=== PATIENT | male | born 1940 | race Caucasian/White ===

== ENCOUNTER 2020-04-15 12:59 | Day surgery (SDC) | payer MEDICARE, BC ==
[~2020-04-15] VITALS: Ht 185.4 cm; Wt 91.8 kg
[2020-04-15 14:31] VITALS: BP 114/65; PULSE 65; TEMP 98.7
[2020-04-15] MEDS ORDERED: PRINIVIL10 MG PO (14:36)
[2020-04-15] MEDS ORDERED: GLUCOPHAGE500 MG/TAB PO (14:36)
[2020-04-15] MEDS ORDERED: ACTOS 15MG TAB15 MG PO (14:37)
[2020-04-15] MEDS ORDERED: LIPITOR 40MG TA40 MG PO (14:37)
[2020-04-15] MEDS ORDERED: TRICOR145 MG PO (14:38)
[2020-04-15] MEDS ORDERED: LUTEIN20 M1 PO (14:39)
[2020-04-15] MEDS ORDERED: SYNTHROID0.075 MG/T PO (14:39)
[2020-04-15] MEDS ORDERED: B-121000 MCG PO (14:40)
[2020-04-15] MEDS ORDERED: VITAMIN D31000 I1 PO (14:41)
[2020-04-15 16:50] VITALS: BP 139/72; PULSE 65; TEMP 98.3
--- NOTE | 2020-04-15 16:50 | NUR ---
PATIENT TRANSPORTED PER CART TO [facility] ACCOMPANIED BY HOOKER MACHINE TENDER. PATIENT ALERT AND TALKING WITH STAFF. DENIES DISCOMFORT AND NAUSEA. MONITORS APPLIED.VSS ON ROOM AIR. PATIENT REQUESTS TO USE RESTROOM. PATIENT AMBULATED WITH 2 ASSIST TO THE RESTROOM. STEADY GAIT. VOIDS WITHOUT PROBLEMS. AND AMBULATED BACK TO CART.
[2020-04-15 17:00] VITALS: BP 152/66; PULSE 58
--- NOTE | 2020-04-15 17:05 | NUR ---
VSS ON ROOM AIR. PATIENT ALERT AND TALKING WITH . PATIENT DENIES DISCOMFORT AND NAUSEA. PATIENT DRINKS DIET PEPSI AND EATS MUFFIN WITHOUT PROBLEMS.
[2020-04-15 17:15] VITALS: BP 158/66; PULSE 58
--- NOTE | 2020-04-15 17:20 | NUR ---
VSS ON ROOM AIR. PATIENT DENIES DISCOMFORT AND NAUSEA. TALKING WITH . PATIENT STATES FEELS LIKE HE IS ALERT MORE.
[2020-04-15 17:30] VITALS: BP 150/78; PULSE 65
--- NOTE | 2020-04-15 17:30 | NUR ---
VSS. PATIENT DOING WELL. IV SITE DC'D WITH CATHETER TIP INTACT. PRESSURE AND BANDAGE APPLIED. AT BEDSIDE.
[2020-04-15 17:40] VITALS: BP 151/62; PULSE 61
--- NOTE | 2020-04-15 17:44 | NUR ---
VSS ON ROOM AIR. DISCHARGE INSTRUCTIONS GIVEN VERBAL AND DISCHARGE PACKET DISCUSSED. QUESTIONS ANSWERED AND PATIENT AND VOICED UNDERSTANDING. DISCHARGE PACKET GIVEN TO . PATIENT CHANGES INTO STREET CLOTHES. PATIENT DISCHARGED PER WHEEL CHAIR [facility] BY AMB RN [facility].
== END 2020-04-15 17:45 | disposition home or self-care (01) ==
LOC: SDCO 12:59
DX: N20.2 Calculus of kidney with calculus of ureter (principal); T83.122A Displacement of indwelling ureteral stent, initial encounter; Y73.3 Surgical instruments, materials and gastroenterology and urology devices (including sutures) associated with adverse incidents; M06.9 Rheumatoid arthritis, unspecified; E78.5 Hyperlipidemia, unspecified; E11.51 Type 2 diabetes mellitus with diabetic peripheral angiopathy without gangrene; E03.9 Hypothyroidism, unspecified; I10 Essential (primary) hypertension; Z79.84 Long term (current) use of oral hypoglycemic drugs; Z79.82 Long term (current) use of aspirin; Z79.899 Other long term (current) drug therapy; Z87.891 Personal history of nicotine dependence
CPT/HCPCS: C1769; J0690; J1100; J2405; J2704; J3010; J7030

== ENCOUNTER 2020-05-27 10:25 | Emergency (ER) | payer MEDICARE, BC ==
[~2020-05-27] VITALS: Ht 185.4 cm; Wt 90.9 kg
[~2020-05-27 10:25] MED LIST: ACTOS 15MG TAB15 MG PO; B-121000 MCG PO; GLUCOPHAGE500 MG/TAB PO; LIPITOR 40MG TA40 MG PO; LUTEIN20 M1 PO; PRINIVIL10 MG PO; SYNTHROID0.075 MG/T PO; TRICOR145 MG PO; VITAMIN D31000 I1 PO
[2020-05-27 10:36] VITALS: TEMP 98.3
[2020-05-27 11:10] LABS: COLLECTION METHOD CLEAN CATCH
[2020-05-27 11:14] LABS: BASO # 0.1 (0.0-0.2); BASO % 0.8 % (0.0-2.0); EOS # 0.4 (0.0-0.7); EOS % 5.7 % (0-4.0); GRAN # 4.1 (1.4-6.5); GRAN % 62.5 % (42.2-75.2); HEMATOCRIT 45.3 % (42.0-52.0); HEMOGLOBIN 14.5 g/dl (13.5-18.0); LYMPH # 1.2 (1.2-3.4); LYMPH % 18.5 % (20.0-51.0); MEAN CELL VOLUME 95 fl (80.0-100.0); MEAN CORPUSCULAR HEMOGLOBIN 30 pg (27.0-31.0); MEAN CORPUSCULAR HGB CONC 32 g/dl (33.0-37.0); MEAN PLATELET VOLUME 10.8 fl (7.4-10.4); MONO # 0.8 (0.1-0.6); MONO % 12.2 % (1.7-9.3); PLATELET COUNT 197 K/mm3 (130-400); RED BLOOD COUNT 4.77 M/mm3 (4.20-5.60); REDCELL DISTRIBUTION WIDTH-CV 12.5 % (11.5-14.5)
[2020-05-27 11:25] LABS: ALBUMIN 4.6 gm/dL (3.5-5.0); BILIRUBIN,TOTAL 0.4 mg/dL (0.0-1.0); CALCIUM 10.1 mg/dL (8.4-10.2); CREATININE, serum 1.41 (0.66-1.25); POTASSIUM 4.3 mmol/L (3.4-5.0); TOTAL PROTEIN 8.4 gm/dL (6.4-8.2)
[2020-05-27 11:35] LABS: PROTHROMBIN TIME 11.2 SECONDS (9.7-12.8)
[2020-05-27 12:29] LABS: PH 6 (5-8); SQUAMOUS EPITHELIAL None Seen /hpf; URINE APPEARANCE Cloudy; URINE BACTERIA None Seen /hpf; URINE BILIRUBIN Negative (NEGATIVE); URINE BLOOD 3+ (NEGATIVE); URINE COLOR Yellow; URINE GLUCOSE 2+ (NEGATIVE); URINE KETONE Negative (NEGATIVE); URINE LEUKOCYTE ESTERASE Negative (NEGATIVE); URINE NITRATE Negative (NEGATIVE); URINE PROTEIN(semi-quant) 1+ (NEGATIVE); URINE RBC >50 /hpf; URINE UROBILINOGEN Negative (NEGATIVE)
[2020-05-27 13:05] VITALS: BP 137/66; PULSE 63
== END 2020-05-27 13:05 | disposition home or self-care (01) ==
LOC: COL.ER 10:25
PROVIDERS: Emergency Medicine
DX: R31.0 Gross hematuria (principal); Z87.442 Personal history of urinary calculi; Z87.891 Personal history of nicotine dependence; Z79.84 Long term (current) use of oral hypoglycemic drugs; Z79.82 Long term (current) use of aspirin

== ENCOUNTER 2021-11-29 15:15 | Inpatient (IN) | payer MEDICARE, BC ==
[~2021-11-29] VITALS: Ht 185.4 cm; Wt 93.8 kg
[2021-12-06 13:06] LABS: HEMATOCRIT 41.4 % (42.0-52.0); HEMOGLOBIN 13.7 g/dl (13.5-18.0); MEAN CELL VOLUME 92 fl (80.0-100.0); MEAN CORPUSCULAR HEMOGLOBIN 31 pg (27-31); MEAN CORPUSCULAR HGB CONC 33 g/dl (33.0-37.0); MEAN PLATELET VOLUME 11.1 fl (7.4-10.4); PLATELET COUNT 203 K/mm3 (130-400); RED BLOOD COUNT 4.49 M/mm3 (4.20-5.60); REDCELL DISTRIBUTION WIDTH-CV 13.3 % (11.5-14.5)
[2021-12-06 13:17] LABS: PROTHROMBIN TIME 11.3 SECONDS (9.7-12.8)
[2021-12-06 13:19] LABS: PARTIAL THROMBOPLASTIN TIME 22.1 SECONDS (26.0-37.0)
[2021-12-06 13:25] LABS: ALBUMIN 4.3 gm/dL (3.4-4.8); BILIRUBIN,TOTAL 0.6 mg/dL (0.2-1.2); CALCIUM 10.3 mg/dL (8.4-10.2); CREATININE, serum 1.81 mg/dL (0.72-1.25); POTASSIUM 4.7 mmol/L (3.5-4.5); TOTAL PROTEIN 7.7 gm/dL (6.2-8.1)
[2021-12-07] VITALS (560 sets, daily range): BP systolic 82–137; BP diastolic 57–107; PULSE 63–84; TEMP 97.3–98.5; O2SAT 84–100
[2021-12-07] MEDS ORDERED: OMEGA-3 FISH1000 MG PO (06:02)
[2021-12-07] MEDS ORDERED: EUTHYROX75 MCG PO (06:03)
[2021-12-07] MEDS ORDERED: LANTUS SOLOS100 U/ML SQ (06:06)
[2021-12-07] MEDS ORDERED: COLACE 100100 MG/CAP PO (07:34)
[2021-12-07] MEDS ORDERED: NORCO 325 MG-51 TAB PO (07:35)
[2021-12-07] MEDS ORDERED: ASPIRIN 81M81 MG/TA2 PO (16:12)
[2021-12-07 16:37] LABS: BASO # 0.1 K/mm3 (0.0-0.2); BASO % 0.3 % (0.0-2.0); GRAN # 15.3 K/mm3 (1.4-6.5); GRAN % 87.7 % (42.2-75.2); HEMATOCRIT 36.9 % (42.0-52.0); HEMOGLOBIN 12.3 g/dl (13.5-18.0); LYMPH # 0.7 K/mm3 (1.2-3.4); LYMPH % 3.8 % (20.0-51.0); MEAN CELL VOLUME 92 fl (80.0-100.0); MEAN CORPUSCULAR HEMOGLOBIN 31 pg (27-31); MEAN CORPUSCULAR HGB CONC 33 g/dl (33.0-37.0); MEAN PLATELET VOLUME 10.7 fl (7.4-10.4); MONO # 1.4 K/mm3 (0.1-0.6); MONO % 7.9 % (1.7-9.3); PLATELET COUNT 171 K/mm3 (130-400); RED BLOOD COUNT 4.01 M/mm3 (4.20-5.60); REDCELL DISTRIBUTION WIDTH-CV 14.1 % (11.5-14.5)
[2021-12-07 16:51] LABS: CALCIUM 8.8 mg/dL (8.4-10.2); CREATININE, serum 1.88 mg/dL (0.72-1.25); POTASSIUM 4.5 mmol/L (3.5-4.5)
--- NOTE | 2021-12-07 20:10 | NUR ---
PT ARRIVED TO ICU 5 AT 1420 FROM PACU. PT A&O, FAMILY AT BEDSIDE. PT ON 2L NC. VSS. PT HAS ELDER DRAIN TO LEFT SIDE, SEROSANGUINEOS OUTPUT. PT HAS SIMMONS IN PLACE, DARK RED URINE NOTED, EVANGELIDES AWARE. 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 STOMA IS DARK RED AND DUSKY. EVANGELIDES AWARE. PT C/O OF 5/10 PAIN. PROVIDED WITH PAIN MEDICATION. PT TOLERATING CLEAR LIQUIDS WITHOUT ISSUE. DRAINAGE NOTED TO MIDLINE DRESSING, MARKED BY MATTRESS SPECIALIST AND THIS NURSE UPON ARRIVAL TO UNIT. EVANGELIDES AWARE. CALL LIGHT WITHIN REACH AND PT ABLE TO MAKE NEEDS KNOWN.
--- NOTE | 2021-12-07 22:52 | NUR ---
SPOKE WITH DR. PHILLIPS REGARDING PT'S POSITIVE OCCULT STOOL, BLOODY DRAINAGE FROM SIMMONS BAG, NO URINE OUTPUT FROM ILEAL CONDUIT. ORDERS RECEIVED FOR NS BOLUS AND CREATININE TEST OF ELDER FLUID. PT VS REMAIN STABLE, OXYGEN SATURATION NOW 95% ON ROOM AIR. PT TOLERATED GETTING OOB TO BSC WELL, MAINTAINING LOW PAIN LEVEL. WILL CONTINUE TO MONITOR.
[2021-12-08] VITALS (1143 sets, daily range): BP systolic 95–127; BP diastolic 47–75; PULSE 75–90; TEMP 97.6–98.6; O2SAT 82–100
[2021-12-08 06:20] LABS: HEMOGLOBIN 11.3 g/dl (13.5-18.0); MEAN CELL VOLUME 90 fl (80.0-100.0); MEAN CORPUSCULAR HEMOGLOBIN 31 pg (27-31); MEAN CORPUSCULAR HGB CONC 34 g/dl (33.0-37.0); MEAN PLATELET VOLUME 10.5 fl (7.4-10.4); PLATELET COUNT 172 K/mm3 (130-400); RED BLOOD COUNT 3.71 M/mm3 (4.20-5.60); REDCELL DISTRIBUTION WIDTH-CV 14.4 % (11.5-14.5)
[2021-12-08 06:23] LABS: HEMATOCRIT 33.3 % (42.0-52.0)
[2021-12-08 06:35] LABS: BAND 12 % (0-10); LYMPHOCYTE 5 % (20.0-51.0); MYELOCYTE 1 % (0-0); NEUTROPHILS 73 % (42.0-75.2); PLATELET ESTIMATE NORMAL (NORMAL)
[2021-12-08 06:36] LABS: OVALOCYTES 1+
[2021-12-08 06:37] LABS: CALCIUM 8.8 mg/dL (8.4-10.2); CREATININE, serum 2.62 mg/dL (0.72-1.25); POTASSIUM 5.3 mmol/L (3.5-4.5)
[2021-12-08 06:38] LABS: HYPOCHROMIA 1+
--- NOTE | 2021-12-08 11:42 | NUR ---
Pt to ct per bed. Pt positioned on table in prone position. Monitors applied and O2 on at 2l/nc.
--- NOTE | 2021-12-08 11:47 | NUR ---
PT LEFT TO CT AT 1130
--- NOTE | 2021-12-08 12:10 | NUR ---
neph tube in place in left kidney with bloody drainage noted.
[2021-12-08 16:22] LABS: CALCIUM 8.8 mg/dL (8.4-10.2); CREATININE, serum 2.53 mg/dL (0.72-1.25); POTASSIUM 5.1 mmol/L (3.5-4.5)
--- NOTE | 2021-12-08 21:41 | NUR ---
reinforced ironworker met with patient and spouse to discuss discharge planning. Patient and spouse reside in [place], [place] and plan to return home upon discharge. Patient has been independent with his activities of daily living and patient's primary care provider is in [place]. Patient has advance directives and spouse will bring in a copy as they have originals in their car. Discharge plan: Home with spouse.
[2021-12-09] VITALS (305 sets, daily range): BP systolic 94–149; BP diastolic 49–82; PULSE 78–97; TEMP 97.9–98.9; O2SAT 85–100
[2021-12-09 05:22] LABS: MEAN CELL VOLUME 94 fl (80.0-100.0); MEAN CORPUSCULAR HGB CONC 32 g/dl (33.0-37.0); MEAN PLATELET VOLUME 11.4 fl (7.4-10.4); PLATELET COUNT 148 K/mm3 (130-400); RED BLOOD COUNT 3.27 M/mm3 (4.20-5.60); REDCELL DISTRIBUTION WIDTH-CV 14.6 % (11.5-14.5)
[2021-12-09 05:29] LABS: HEMATOCRIT 30.8 % (42.0-52.0); HEMOGLOBIN 9.9 g/dl (13.5-18.0); MEAN CORPUSCULAR HEMOGLOBIN 30 pg (27-31)
[2021-12-09 05:35] LABS: CALCIUM 8.7 mg/dL (8.4-10.2); CREATININE, serum 2.71 mg/dL (0.72-1.25); POTASSIUM 4.8 mmol/L (3.5-4.5)
[2021-12-09 06:46] LABS: BAND 6 % (0-10); EOSINOPHIL 2 % (0-4); LYMPHOCYTE 5 % (20.0-51.0); NEUTROPHILS 75 % (42.0-75.2)
[2021-12-09 06:47] LABS: PLATELET ESTIMATE NORMAL (NORMAL)
--- NOTE | 2021-12-09 07:45 | NUR ---
DRESSINGS CHANGED TO MIDLINE INCISION AND LEFT ABD ELDER DRAIN. ILEAL CONDUIT OSTOMY BAG CHANGED AT THIS TIME. STOMA DARK RED IN APPEARANCE; DRAIN REMAINS IN PLACE.
--- NOTE | 2021-12-09 09:26 | NUR ---
Initial visit; Patient thanked Occ Ther for visit though declined spiritual care. His requested that Occ Ther keep them in her prayers.
--- NOTE | 2021-12-09 18:47 | NUR ---
PATIENT BROUGHT TO FLOOR APPROXIMATELY 1630. PATIENT ORIENTED TO FLOOR/ROOM. PATIENT CHANGED INTO FALL RISK GOWN/SIGNAGE PLACED. PATIENT DENIES PAIN AT THIS ITME. ASSESSMENT PERFORMED. MED RX REVIEWED. PATIENT WITH NEPHRO TUBE, ELDER DRAIN, AND UROSTOMY. MIDLINE INCISION WITH MITA, CDI. ELDER DRAIN SITE WITH SUTURES LEAKING, DRESSING CHANGED.
--- NOTE | 2021-12-09 20:00 | NUR ---
PT A&O. PLEASANT AND COOPERATIVE. IV LFA LR AT 75CC/HR. LT NEPH TUBE WITH CLEAR YELLOW URINE NOTED. UROSTOMY WITH NO URINE DRAINAGE NOTED. ELDER WITH MINIMAL YELLOWISH DRAINAGE. MIDLINE ABD DRSG CDI AT THIS TIME. PT DENIES PAIN. SCD'S ON BILAT. CALL LIGHT IN REACH. BED ALARM SET.
--- NOTE | 2021-12-09 23:15 | NUR ---
PT RESTING COMFOTABLY. NO PAIN. ABD DRSG CONTINUE TO BE DRY. UROSTOMY CONTINUES TO BE DRY. 400CC CLEAR YELLOW URINE FROM NEPH TUBE DRAINED. 10CC FROM ELDER.
--- NOTE | 2021-12-09 23:41 | NUR ---
PT REQUESTED MELATONIN. SEE NEW ORDER FROM Errol LOMELI.
[2021-12-10 03:24] VITALS: BP 115/67; PULSE 95; TEMP 98.4
--- NOTE | 2021-12-10 05:35 | NUR ---
PT ASLEEP NOW. HAS BEEN AWAKE MOST OF THE NIGHT. NO UO FROM UROSTOMY. NEPH TUBE CONTINUES WITH CLEAR YELLOW RETURN. MINIMAL OUTPUT FROM ELDER. ABD OLIVIAG CDI.
[2021-12-10 07:20] LABS: HEMOGLOBIN 10.3 g/dl (13.5-18.0); MEAN CELL VOLUME 92 fl (80.0-100.0); MEAN CORPUSCULAR HEMOGLOBIN 30 pg (27-31); MEAN CORPUSCULAR HGB CONC 32 g/dl (33.0-37.0); MEAN PLATELET VOLUME 11.5 fl (7.4-10.4); PLATELET COUNT 162 K/mm3 (130-400); RED BLOOD COUNT 3.47 M/mm3 (4.20-5.60); REDCELL DISTRIBUTION WIDTH-CV 14.1 % (11.5-14.5)
[2021-12-10 07:29] VITALS: BP 121/56; PULSE 67; TEMP 98.4
[2021-12-10 07:29] LABS: HEMATOCRIT 31.9 % (42.0-52.0)
[2021-12-10 07:31] LABS: CALCIUM 9.3 mg/dL (8.4-10.2); CREATININE, serum 1.81 mg/dL (0.72-1.25); POTASSIUM 5.1 mmol/L (3.5-4.5)
[2021-12-10 08:31] LABS: BAND 7 % (0-10); EOSINOPHIL 1 % (0-4); LYMPHOCYTE 4 % (20.0-51.0); NEUTROPHILS 83 % (42.0-75.2); PLATELET ESTIMATE NORMAL (NORMAL)
--- NOTE | 2021-12-10 09:00 | NUR ---
Pt doing okay this morning. Pt did get up to the chair. He did have a small amount of emesis. Pt reports that he has felt nauseated all night long and now he does feel better overall. Pt reports feeling good sitting up in the chair. Pts is at bedside.
[2021-12-10 11:38] VITALS: BP 108/54; PULSE 89; TEMP 97.7
--- NOTE | 2021-12-10 13:00 | NUR ---
Pt continues to do well. He has been sitting up in the chair for most of the morning. Pt is back in bed at this time. Pt states that pain is tolerable with the schedule Tylenol. Pts has been at bedside. Nephrostomy tube continues to put out urine. Pt tolerating clear liquids, no needs verbalized, will continue to monitor
[2021-12-10 15:52] VITALS: BP 128/64; PULSE 85; TEMP 97.9
--- NOTE | 2021-12-10 17:55 | NUR ---
Pt now in bed, but has been up in the chair off and on. Pt does well with this. Pt aware that PT will start working with him tomorrow. Pt continuest to report mild pain. No needs verbalized, will continue to monitor
[2021-12-10 19:14] VITALS: BP 152/60; PULSE 85; TEMP 98.1
--- NOTE | 2021-12-10 19:21 | NUR ---
PT VOMITED 700CC LIQ EMESIS. ZOFRAN GIVEN. BELCHING QUITE A BIT. PT PASSING SM AMT FLATUS. PAIN UNDER CONTROL. IVF'S CONTINUE 75CC/HR.
--- NOTE | 2021-12-10 19:25 | NUR ---
EMPTIED 250CC SL CONCENTRATED CLEAR URINE FROM NEPH TUBE. UROSTOMY HAS SCANT AMT OF BLOODY RETURN. ELDER ZAVALA AMT YELLOWISH DRG.
--- NOTE | 2021-12-10 20:39 | NUR ---
NAUSEA BETTER. NO NEEDS AT THIS TIME. CALL LIGHT IN REACH. BED ALARM SET.
--- NOTE | 2021-12-10 22:00 | NUR ---
ABD DRSG WITH LIGHT RED AND YELLOWISH DRAINAGE NOTED. CHANGED AT THIS TIME. MIDLINE INCISION WELL APPROXIMATED WITH MITA INTACT. GAUZE AND MEDIFORE TAPE APPLIED. ELDER SITE CDI. NEPH TUBE SITE CDI TO LT FLANK. PT TOLERATED WELL.
[2021-12-10 23:25] VITALS: BP 107/59; PULSE 91; TEMP 98.4
--- NOTE | 2021-12-11 01:41 | NUR ---
PT SLEEPING INTERMITTENTLY. NEPHROSTOMY TUBE DRAINING JOVANNY CLEAR URINE. SCANT BLOODY DRG FROM UROSTOMY. ELDER DRAIN WITH YELLOWISH DRG.
[2021-12-11 03:41] VITALS: BP 117/58; PULSE 87; TEMP 98.2
--- NOTE | 2021-12-11 05:15 | NUR ---
ASSISTED PT TO BR. HAD INCONT LOOSE BROWN BM. CHANGED LINENS. BACK TO BED. NEPH TUBE DRSG COMING OFF. CHANGED NEPH TUBE DRSG. NO DRG. SEE I&O UO'S. CALL LIGHT IN REACH. BED ALARM SET.
[2021-12-11 06:44] LABS: MEAN CELL VOLUME 89 fl (80.0-100.0); MEAN CORPUSCULAR HGB CONC 33 g/dl (33.0-37.0); MEAN PLATELET VOLUME 11.1 fl (7.4-10.4); PLATELET COUNT 164 K/mm3 (130-400); RED BLOOD COUNT 3.21 M/mm3 (4.20-5.60); REDCELL DISTRIBUTION WIDTH-CV 13.6 % (11.5-14.5)
[2021-12-11 07:02] LABS: HEMATOCRIT 28.7 % (42.0-52.0); HEMOGLOBIN 9.6 g/dl (13.5-18.0); MEAN CORPUSCULAR HEMOGLOBIN 30 pg (27-31)
[2021-12-11 07:06] LABS: CALCIUM 8.7 mg/dL (8.4-10.2); CREATININE, serum 1.74 mg/dL (0.72-1.25); POTASSIUM 4.3 mmol/L (3.5-4.5)
[2021-12-11 07:58] LABS: BAND 6 % (0-10); BASOPHIL 1 % (0-2); EOSINOPHIL 5 % (0-4); LYMPHOCYTE 13 % (20.0-51.0); NEUTROPHILS 65 % (42.0-75.2)
[2021-12-11 07:59] LABS: PLATELET ESTIMATE NORMAL (NORMAL)
[2021-12-11 08:17] VITALS: BP 101/54; PULSE 85; TEMP 98.9
--- NOTE | 2021-12-11 09:56 | NUR ---
Patient sitting up in chair, at bedside. Therapy in to see patient. We ambulated halls and he did well. He did report feeling slightly lightheaded. He tolerated a small amount of liquids for lunch, but continues to have nausea. No emesis. Patient has made frequent trips to the bathroom. loose watery stools per report. ELDER drain to compression/ Neph tube to DD with adequate urine out. New gauze dressing placed with tegaderm, he reports prior tape was pulling his skin. Midline with gauze. Illeoconduit to del rio with minimal output. INt. Scds. Will monitor.
[2021-12-11 12:00] VITALS: BP 101/54; PULSE 85; TEMP 98.9
--- NOTE | 2021-12-11 14:00 | NUR ---
Patient and his given education written and hands on about his urostomy. Wafter cut to fit. I did use stoma powder & barrier wipes to protect skin. New dressing to midline. New dressing around LEDER drain site. Patient and his thankful for education and very receptive.
[2021-12-11 16:08] VITALS: BP 121/69; PULSE 82; TEMP 98.4
[2021-12-11 19:40] VITALS: BP 126/62; PULSE 85; TEMP 97.8
--- NOTE | 2021-12-11 19:42 | NUR ---
Patient persistantly nauseated this evening. made aware. Orders for NG tube obtained with Kub for placement. Patinet tolerated fairly well. Light green bile obtained. LIS. Patient has tolerated minimal PO intake today. He has no further loose stools this afternoon or evening, but was having hiccups and felt his abdomen was becoming distended. Zofran did not relieve nausea. Report to farhan Nolan
--- NOTE | 2021-12-11 20:00 | NUR ---
PT RESTING IN BED. A&O. NG TO LIS WITH GREEN RETURN. PT DENIES NAUSEA. DENIES PAIN. UROSTOMY W/STENT INTACT. NO DRG. LT NEPH TUBE DRAINING JOVANNY CLEAR URINE. ELDER DRAIN W/ YELLOWISH RETURN. AT BEDSIDE. VERY SUPPORTIVE. CALL LIGHT IN REACH. BED ALARM SET.
[2021-12-11 23:17] VITALS: BP 132/47; PULSE 92; TEMP 98.2
--- NOTE | 2021-12-12 00:40 | NUR ---
PT RESTING. NG CONTINUES INTERMITTNT SUCTION WITH APPROX 500CC GREEN RETURN SINCE BEGINNING OF SHIFT. ABD DRSG CDI. UROSTOMY WITH NO RETURN. LT NEPH TUBE DRAINED 150CC CONCENTRATED CLEAR URINE. ELDER 10CC YELLOWISH RETURN. NOTIFIED Gina RICHARDSON REGARDING NPO STATUS VS NO IVF'S. ACCUCHECK ACHS TO CHANGE TO Q6HR. SEE NEW ORDERS.
--- NOTE | 2021-12-12 00:43 | NUR ---
NS STARTED TO LT F/A IV SITE AT 100CC/HR. ACCUCHECK 126. PT RETURNS TO SLEEP.
[2021-12-12 03:27] VITALS: BP 110/58; PULSE 83; TEMP 97.4
[2021-12-12 06:38] LABS: MEAN CELL VOLUME 89 fl (80.0-100.0); MEAN CORPUSCULAR HGB CONC 34 g/dl (33.0-37.0); MEAN PLATELET VOLUME 10.8 fl (7.4-10.4); PLATELET COUNT 167 K/mm3 (130-400); RED BLOOD COUNT 3.17 M/mm3 (4.20-5.60); REDCELL DISTRIBUTION WIDTH-CV 13.4 % (11.5-14.5)
[2021-12-12 06:44] LABS: HEMATOCRIT 28.3 % (42.0-52.0); HEMOGLOBIN 9.5 g/dl (13.5-18.0); MEAN CORPUSCULAR HEMOGLOBIN 30 pg (27-31)
[2021-12-12 06:58] LABS: CALCIUM 8.6 mg/dL (8.4-10.2); CREATININE, serum 1.7 mg/dL (0.72-1.25); POTASSIUM 4.1 mmol/L (3.5-4.5)
[2021-12-12 07:23] LABS: BAND 8 % (0-10); EOSINOPHIL 4 % (0-4); LYMPHOCYTE 12 % (20.0-51.0); NEUTROPHILS 52 % (42.0-75.2); PLATELET ESTIMATE NORMAL (NORMAL)
[2021-12-12 08:07] VITALS: BP 108/67; PULSE 79; TEMP 98.5
[2021-12-12 13:13] VITALS: BP 106/49; PULSE 78; TEMP 98.6
--- NOTE | 2021-12-12 14:00 | NUR ---
PCT IN W PT CHANGING GOWN, CALLED THIS NURSE TO REPORT PTS NG TUBE FELL OUT. CALLED DR. KITCHEN AND DOES NOT NEED A NEW NG PLACED. PT ABLE TO HAVE CHIPS AND SIPS.
[2021-12-12 16:01] VITALS: BP 105/60; PULSE 79; TEMP 97.9
--- NOTE | 2021-12-12 18:03 | NUR ---
PT DENIES PN, N/V. TOLERATING SIPS AND CHIPS WELL.
[2021-12-12 20:02] VITALS: BP 107/52; PULSE 81; TEMP 98.3
--- NOTE | 2021-12-12 20:30 | NUR ---
PT RESTING IN BED. NO DISTRESS. DENEIS NAUSEA. TAKING SIP AND CHIPS H20 SLOWLY. IV LT FA NS AT 100CC/HR. LT NEPH TUBE DRAING JOVANNY CLEAR URINE. NO UO FROM UROSTOMY BAG. ELDER INTACT WITH YELLOWISH DRAINAGE. PT DENIES PAIN AT THIS TIME. CALL LIGHT IN REACH BED ALARM SET. NO NEEDS AT THIS TIME.
[2021-12-12 23:46] VITALS: BP 119/56; PULSE 76; TEMP 97.7
[2021-12-13 03:10] VITALS: BP 113/66; PULSE 77; TEMP 98.4
--- NOTE | 2021-12-13 06:07 | NUR ---
ABD DRSG CHANGED TO ELDER DRAIN SITE AND MIDLINE INCISION. PT UP TO CHAIR EALIER THEN BACK TO BED. ELDER BULB FILLED WITH SEROUS SANGINOUS 50CC. NEPH TUBE 100CC SL CONCENTRATED URINE. PT RELATES HAS NOT HAD ANY NAUSEA SINCE NG CAME OUT.
[2021-12-13 07:07] LABS: CALCIUM 8.4 mg/dL (8.4-10.2); CREATININE, serum 1.5 mg/dL (0.72-1.25); POTASSIUM 4.4 mmol/L (3.5-4.5)
--- NOTE | 2021-12-13 07:17 | NUR ---
BEDSIDE REPORT DONE. PATIENT RESTIN IN BED. CALL L IGHT IN REACH
[2021-12-13 07:24] LABS: HEMOGLOBIN 10.3 g/dl (13.5-18.0); MEAN CELL VOLUME 93 fl (80.0-100.0); MEAN CORPUSCULAR HEMOGLOBIN 30 pg (27-31); MEAN CORPUSCULAR HGB CONC 32 g/dl (33.0-37.0); PLATELET COUNT 229 K/mm3 (130-400); RED BLOOD COUNT 3.43 M/mm3 (4.20-5.60); REDCELL DISTRIBUTION WIDTH-CV 13.6 % (11.5-14.5)
[2021-12-13 07:26] LABS: HEMATOCRIT 31.9 % (42.0-52.0)
[2021-12-13 08:21] LABS: BAND 20 % (0-10); EOSINOPHIL 7 % (0-4); LYMPHOCYTE 12 % (20.0-51.0); METAMYELOCYTE 5 % (0-0); NEUTROPHILS 40 % (42.0-75.2)
[2021-12-13 08:22] LABS: PLATELET ESTIMATE NORMAL (NORMAL)
[2021-12-13 08:42] VITALS: BP 111/55; PULSE 45; TEMP 98.2
--- NOTE | 2021-12-13 10:38 | NUR ---
ASSESSMENT DONE. PATIENT UP AND WALKING AROUND NOW PER DR PHILLIPS ORDER. RECEIVED ORDER FOR CLEAR DIET.
--- NOTE | 2021-12-13 11:19 | NUR ---
MELISSA met with the patient and his , Farhana, to follow up and review discharge plan. The patient states that he is doing well. MELISSA discussed home health services. The patient states that home health is something he may be interested in, but is not sure if they will need it or want it upon discharge. Him and his would like to think about it. MELISSA provided them with Medicare.gov's list of home health agencies that serve [place]. *Discharge plan: home with and possibly home health*
[2021-12-13 14:08] VITALS: BP 126/60; PULSE 74; TEMP 98.4
[2021-12-13 17:03] VITALS: BP 117/79; PULSE 76; TEMP 98.6
--- NOTE | 2021-12-13 19:32 | NUR ---
PATIENT HAS BEEN UP FOR ABOUT 5 TIME MOVING AROUND WALKING OUT THE ROOM. HAD LOOSE STOOL X 2 TODAY. ACCDENTLY INCONTINENT IN BED. PATIENT DID SAY THAT HIS STOMACH(LOWER ABDOMINAL) CRAMPS NOTED. SMALL AMOUNT NOTED
[2021-12-13 20:54] VITALS: BP 128/88; PULSE 75; TEMP 98.3
--- NOTE | 2021-12-13 21:30 | NUR ---
PT reports having >10 diarrhea stools today, notified ARMANI Watt, stool specimen for GI panel ordered.
[2021-12-14 00:46] VITALS: BP 100/61; PULSE 77; TEMP 97.6
--- NOTE | 2021-12-14 01:05 | NUR ---
stool specimen collected and sent to lab. pt asking for immodium, per ARMANI Watt will order is specimen is negative.
[2021-12-14 04:35] VITALS: BP 113/51; PULSE 78; TEMP 98.2
--- NOTE | 2021-12-14 05:35 | NUR ---
stool specimen negative, one time dose of immodium ordered and given, pt reports feels some improvement. IVF infusing per PIV @ 100cc/hr, taking clear liquids only. up walking in room ad fe, no SSI required this shift. ELDER and nephrostomy tubes patent/intact and secure, ileostomy in place with old red-brown drainage in bag. no NV this shift.
[2021-12-14 07:35] VITALS: BP 130/56; PULSE 70; TEMP 98.3
--- NOTE | 2021-12-14 09:32 | NUR ---
PT A&OX4 RESTING IN BED, AT BESIDE. MEDS GIVEN AND ASSESSMENT COMPLETE. PT DENIES PN AND N/V. PT PASSING GAS. ELDER DRAIN AND NEPH TUBE W YELLOW OUTPUT. UROSTOMY W MINIMAL BROWN OUTPUT. BS 116 AND DOES NOT REQUIRE INSULIN PER SS. PT REPORTS DIARRHEA OVER NIGHT. ARMANI CALIX IN W PT AND RECOMMENDS ADVANCING PTS DIET. NS INFUSING IN LW AT 100. NO NEEDS AT THIS TIME. CALL LIGHT WITHIN REACH.
--- NOTE | 2021-12-14 10:00 | NUR ---
PT AMBULATING THE HALLS W PHYSICAL THERAPY W NO DIFFICULTY.
[2021-12-14 12:26] VITALS: BP 125/53; PULSE 72; TEMP 97.4
[2021-12-14 16:40] VITALS: BP 133/66; PULSE 70; TEMP 98.4
[2021-12-14 20:00] VITALS: BP 126/79; PULSE 50; TEMP 98.2
[2021-12-15 00:05] VITALS: BP 118/71; PULSE 77; TEMP 98
[2021-12-15 04:01] VITALS: BP 126/55; PULSE 78; TEMP 98.1
[2021-12-15 07:02] LABS: ALBUMIN 2.3 gm/dL (3.4-4.8); CALCIUM 7.7 mg/dL (8.4-10.2); CREATININE, serum 1.25 mg/dL (0.72-1.25); PHOSPHOROUS 2.4 mg/dL (2.3-4.7); POTASSIUM 3.6 mmol/L (3.5-4.5)
--- NOTE | 2021-12-15 07:12 | NUR ---
pt had changes in drainage this shift, nephrostomy tube now with minimal output, ELDER output increased and ileostomy now draining large amts, ostomy bag had to be changed x2 d/t leaking, unable to get good seal with yamilet present in midline incision. pt had diarrhea throughout the noc, imodium order rec'd and given, none since. IVF infusing per piv @ 100cc/hr, no SSI required. no c/o pain. here this am.
[2021-12-15 08:15] VITALS: BP 101/47; PULSE 87; TEMP 98.1
--- NOTE | 2021-12-15 09:43 | NUR ---
Patient resting in bed. His at bedside. He is tired this am, he has a long night. Leaking from illeoconduit, and increased OTTONIEL drain output. Neph tube drainage had stopped. Attempted to call Good Muñoz, no Answer this am. I did call and reviewed the night with him. Orders to flush neph tube with 3ml NS. I also asked if Dr. Stearns could stop in and see patient since he was rounding on patients. into see patient, he visulized stoma and removed eschar. New urostomy appliace applied.(urostomy education given to gita & his ) New dressing to ottoniel drain. (OTTONIEL CR sent to lab per orders) New dressing to L.neph tube with gauze & tegaderm. Adequate jose luis urine output after flushing tube with 3ml NS. Midline with yamilet open to air. Ivf per orders. Patient did not have interest in any breakfast. Johnn wanting to wait to take any of his am medications. Ashwin harmon.
[2021-12-15 15:30] VITALS: BP 113/50; PULSE 83; TEMP 98.7
--- NOTE | 2021-12-15 19:33 | NUR ---
Patient did well this afternoon & evening. He is in better spirits. Wif with him most of the day. He reports improved appetite. Pain manged, patient not even sure he is needing the tylenol anymore. Neph tube continues to drain adequate urine. Natan Cr reported to . Natan drain remains to compression and drained as needed. Illeoconduit wafer intact without leaking. Minimal to no drainage. Report to night nurse
[2021-12-15 19:59] VITALS: BP 116/48; PULSE 77; TEMP 97.8
[2021-12-16 00:30] VITALS: BP 129/57; PULSE 73; TEMP 98
[2021-12-16 04:00] VITALS: BP 116/58; PULSE 80; TEMP 98.1
--- NOTE | 2021-12-16 07:43 | NUR ---
Received shift report from the film processing shift supervisor nurse, RN
[2021-12-16 08:11] VITALS: BP 105/72; PULSE 83; TEMP 97.8
--- NOTE | 2021-12-16 09:31 | NUR ---
Patient sitting up in bed alert and oriented. ELDER solano intact, emptied 100cc of jose luis drainage in bag .Patient refused scheduled tylenol. Patient denies pain at this time. Family member at the bedside.
[2021-12-16 11:34] VITALS: BP 136/60; PULSE 85; TEMP 98.5
--- NOTE | 2021-12-16 12:05 | NUR ---
PATIENT EXPRESSED CONCERN ABOUT TAKING ELDER DRAIN OUT TODAY DUE TO OUTPUT GREATER THAN 200CC TODAY. NURSING TALKED WITH UROLOGY, OKAY TO DC ELDER DRAIN. PATIENT AND GIVEN UPDATE. NURSE TO PULL ELDER DRAIN PER ORDERS.
--- NOTE | 2021-12-16 13:00 | NUR ---
DC'D ELDER DRAIN, REMOVED SUTURE, AND COVERED SITE WITH GAUZE & TEGADERM. PATIENT TOLERATED WELL. PATIENT, AND MYSELF TALKED ABOUT HOME SUPPLIED NEEDED FOR DISCHARGE INCLUDING [facility] SUPPLIED FOR ELDER SITE, LEG BAG & BED BAG SIMMONS, AND UROSTOMY SUPPLIES. BEHAVIORIST ORDERING HOME UROSTOMY SUPPLIES AND WILL GO IN TO ANSWER QUESTIONS ABOUT ORDERING SUPPLIES. FLOOR UPDATED ON DISCHARGE PROGRESS.
== END 2021-12-16 18:00 | disposition home or self-care (01) | DRG 654 ==
LOC: ICU 12-07 05:18 → INPTSU 12-07 05:18 → SURG 12-07 05:18 → ICU 12-07 16:22 → SURG 12-09 16:30
PROVIDERS: Internal Medicine Nephrology; ADMIT Urology
PROC: 07BC0ZZ Excision of Pelvis Lymphatic, Open Approach (ICD-10-PCS; 2021-12-07)
PROC: 0T180ZC Bypass Bilateral Ureters to Ileocutaneous, Open Approach (ICD-10-PCS; 2021-12-07)
PROC: 0TTB0ZZ Resection of Bladder, Open Approach (ICD-10-PCS; principal; 2021-12-07 07:30)
DX: C67.9 Malignant neoplasm of bladder, unspecified (principal); C79.89 Secondary malignant neoplasm of other specified sites; N17.9 Acute kidney failure, unspecified; Q60.0 Renal agenesis, unilateral; N20.0 Calculus of kidney; E11.9 Type 2 diabetes mellitus without complications; I12.9 Hypertensive chronic kidney disease with stage 1 through stage 4 chronic kidney disease, or unspecified chronic kidney disease; N18.32 Chronic kidney disease, stage 3b; E11.22 Type 2 diabetes mellitus with diabetic chronic kidney disease; E11.42 Type 2 diabetes mellitus with diabetic polyneuropathy; M06.9 Rheumatoid arthritis, unspecified; E03.9 Hypothyroidism, unspecified; E78.5 Hyperlipidemia, unspecified; Z87.891 Personal history of nicotine dependence; Z85.51 Personal history of malignant neoplasm of bladder
CPT/HCPCS: OP; A4314; A9284; C1729; C1769; C2617; J0690; J1100; J1170; J1644; J1815; J2250; J2370; J2405; J2704; J2765; J2795; J3010; J7030; J7040; J7120; P9016

== ENCOUNTER 2021-12-17 13:39 | Inpatient (IN) | payer MEDICARE, BC ==
[~2021-12-17] VITALS: Ht 185.4 cm; Wt 95.8 kg
[~2021-12-17 13:39] MED LIST changes: +ASPIRIN 81M81 MG/TA2 PO; +COLACE 100100 MG/CAP PO; +EUTHYROX75 MCG PO; +LANTUS SOLOS100 U/ML SQ; +NORCO 325 MG-51 TAB PO; +OMEGA-3 FISH1000 MG PO
--- NOTE | 2021-12-17 14:00 | NUR ---
arrived on unit per WC into room 350, resting in bed, physical assessment completed, ostomy is leaking from around site, neph tube is draining jose luis cloudy urine, small amount urine in del rio bag and some stool in colostomy bag
[2021-12-17 14:02] VITALS: BP 118/53; PULSE 96; TEMP 97.4
--- NOTE | 2021-12-17 14:59 | NUR ---
Toni Sibley notified of consult and she states they are already aware
[2021-12-17 15:28] LABS: HEMOGLOBIN 10.5 g/dl (13.5-18.0); MEAN CELL VOLUME 94 fl (80.0-100.0); MEAN CORPUSCULAR HEMOGLOBIN 30 pg (27-31); MEAN CORPUSCULAR HGB CONC 32 g/dl (33.0-37.0); MEAN PLATELET VOLUME 9.2 fl (7.4-10.4); PLATELET COUNT 263 K/mm3 (130-400); RED BLOOD COUNT 3.51 M/mm3 (4.20-5.60); REDCELL DISTRIBUTION WIDTH-CV 14.6 % (11.5-14.5)
[2021-12-17 15:32] LABS: HEMATOCRIT 32.9 % (42.0-52.0)
[2021-12-17 15:40] LABS: ALBUMIN 2.2 gm/dL (3.4-4.8); BILIRUBIN,TOTAL 1.8 mg/dL (0.2-1.2); CALCIUM 8.5 mg/dL (8.4-10.2); CREATININE, serum 1.79 mg/dL (0.72-1.25); POTASSIUM 4.3 mmol/L (3.5-4.5); TOTAL PROTEIN 5.4 gm/dL (6.2-8.1)
--- NOTE | 2021-12-17 15:45 | NUR ---
wafer around stoma was removed and replaced, appears to be sealed well and bag on, dressing to neph tube peeling away and replaced with drain sponge and tegaderm, hygiene provided and he was very grateful for this, Dr Nicholas and ARMANI Lee in to see patient
[2021-12-17 16:02] VITALS: BP 119/51; PULSE 47; TEMP 97.9
[2021-12-17 16:20] LABS: BAND 16 % (0-10); LYMPHOCYTE 6 % (20.0-51.0); NEUTROPHILS 74 % (42.0-75.2); PLATELET ESTIMATE NORMAL (NORMAL)
--- NOTE | 2021-12-17 16:38 | NUR ---
admission assessment completed, order received for diet, denies needs
--- NOTE | 2021-12-17 17:16 | NUR ---
resting quietly, encouraged him to order supper but is not hungry at this time
--- NOTE | 2021-12-17 19:03 | NUR ---
bedside shift report given to KATHERINE Cabezas
[2021-12-17 19:50] VITALS: BP 131/53; PULSE 109; TEMP 97.5
[2021-12-17 23:43] VITALS: BP 92/41; PULSE 93; TEMP 98.5
--- NOTE | 2021-12-18 01:40 | NUR ---
SHIFT REPORT FROM SORAYA MURPHY. PATIENT IN BED ON ROOM ENTRY. HS MEDS PER EMAR. UROSTOMY WITH LITTLE OUTPUT. NEPH TUBE HAS GOOD OUTPUT. IVF TO L HAND IV. REMAINS ON 1 L O2. DENIES PAIN.
[2021-12-18 03:51] VITALS: BP 104/74; PULSE 85; TEMP 97.7
[2021-12-18 07:59] VITALS: BP 125/51; PULSE 85; TEMP 98
[2021-12-18 09:34] LABS: MEAN CELL VOLUME 91 fl (80.0-100.0); MEAN CORPUSCULAR HGB CONC 33 g/dl (33.0-37.0); MEAN PLATELET VOLUME 9.2 fl (7.4-10.4); PLATELET COUNT 215 K/mm3 (130-400); RED BLOOD COUNT 3.05 M/mm3 (4.20-5.60); REDCELL DISTRIBUTION WIDTH-CV 14.7 % (11.5-14.5)
[2021-12-18 09:36] LABS: HEMATOCRIT 27.8 % (42.0-52.0); HEMOGLOBIN 9.2 g/dl (13.5-18.0); MEAN CORPUSCULAR HEMOGLOBIN 30 pg (27-31)
[2021-12-18 09:52] LABS: CALCIUM 7.9 mg/dL (8.4-10.2); CREATININE, serum 1.4 mg/dL (0.72-1.25); POTASSIUM 3.8 mmol/L (3.5-4.5)
--- NOTE | 2021-12-18 10:52 | NUR ---
SW met with patient to complete intake. Patient states that he lives in [facility] with is Farhana [phone]. Patient does not utilize DME, is independent with ADL's, and does not utilize home health services. PCP is Dr. Mckeon, and pharmacy is [facility] in [place]. is appoited as DPOA/HC. Patient states that his plan is to return to his home upon DC but stated they may have to go to a swing bed in the [place] area or . SW will continue to follow. DC plan: home with HH vs Swingbed ([facility])
[2021-12-18 12:01] VITALS: BP 108/48; PULSE 98; TEMP 98.1
--- NOTE | 2021-12-18 12:58 | NUR ---
Secretary Board Of Commissioners visited briefly with patient while spouse was in room.
[2021-12-18 16:04] VITALS: BP 126/57; PULSE 92; TEMP 99
[2021-12-18 20:08] VITALS: BP 113/51; PULSE 93; TEMP 99.2
--- NOTE | 2021-12-18 22:02 | NUR ---
SHIFT REPORT FROM DAY SHIFT RN. PATIENT IN BED ON ROOM ENTRY. AMBULATED WITH SBA TO BATHROOM AND HAD LOOSE BM. HS MEDS PER EMAR. BS 154, INSULIN PER SLIDING SCALE. REMAINS ON 1 L O2. IVF TO L HAND IV. DENIES ADDITIONAL NEEDS, CALL LIGHT IN REACH.
[2021-12-18 23:29] VITALS: BP 125/47; PULSE 97; TEMP 98.5
--- NOTE | 2021-12-19 01:16 | NUR ---
Patient care, medication administration and nursing documentation occurred during a Daylight Savings Time Change.
[2021-12-19 04:13] VITALS: BP 119/54; PULSE 94; TEMP 98.8
[2021-12-19 07:22] LABS: MEAN CELL VOLUME 90 fl (80.0-100.0); MEAN CORPUSCULAR HGB CONC 33 g/dl (33.0-37.0); MEAN PLATELET VOLUME 9.6 fl (7.4-10.4); PLATELET COUNT 190 K/mm3 (130-400); RED BLOOD COUNT 2.84 M/mm3 (4.20-5.60); REDCELL DISTRIBUTION WIDTH-CV 14.6 % (11.5-14.5)
[2021-12-19 07:32] LABS: CALCIUM 7.6 mg/dL (8.4-10.2); CREATININE, serum 1.14 mg/dL (0.72-1.25); POTASSIUM 3.7 mmol/L (3.5-4.5)
[2021-12-19 07:34] LABS: HEMATOCRIT 25.6 % (42.0-52.0); HEMOGLOBIN 8.5 g/dl (13.5-18.0); MEAN CORPUSCULAR HEMOGLOBIN 30 pg (27-31)
[2021-12-19 07:49] VITALS: BP 111/51; PULSE 88; TEMP 98.9
[2021-12-19 07:57] LABS: BAND 12 % (0-10); EOSINOPHIL 2 % (0-4); LYMPHOCYTE 2 % (20.0-51.0); NEUTROPHILS 73 % (42.0-75.2); PLATELET ESTIMATE NORMAL (NORMAL)
[2021-12-19 12:00] VITALS: BP 119/60; PULSE 94; TEMP 98.2
[2021-12-19 16:00] VITALS: BP 134/65; PULSE 95; TEMP 98.5
--- NOTE | 2021-12-19 19:23 | NUR ---
PT ALREADY HAS INCENTIVE SPIROMETER AT BEDSIDE
[2021-12-19 20:58] VITALS: BP 131/54; PULSE 93; TEMP 99.9
--- NOTE | 2021-12-19 21:00 | NUR ---
PT has 75cc of redish-brown drainage from ileostomy and bag leaking, red devang completely out of stoma. nephrostomy tube with [address] Lew per phone, order rec'd to flush nephrostomy tube with 3cc normal saline and replace ostomy bag, leave red devang out.
--- NOTE | 2021-12-19 21:20 | NUR ---
ostomy bag changed, no new drainage noted. surgically placed blue tubing noted protruding from stoma, left in place. flushed nephrostomy tube with 3cc normal saline, clear yellow urine drainage in tubing afterwards. pt tolerated well.
[2021-12-19 23:21] VITALS: BP 124/66; PULSE 98; TEMP 99.7
[2021-12-20 03:13] VITALS: BP 102/55; PULSE 91; TEMP 98.4
[2021-12-20 07:35] VITALS: BP 116/54; PULSE 92; TEMP 98.3
[2021-12-20 10:00] LABS: CLOSTRIDIUM DIFF A/B NEG; CLOSTRIDIUM DIFF A/B INTERP No C.diff present
--- NOTE | 2021-12-20 10:46 | NUR ---
Patient in bed quietly, alert and oriented. Ileaconduit bag intact , no drainage noted . Nephrostomy intact drianing cloudy urine in the bag. Patient denies pain. Spouse at the bedside.
[2021-12-20 11:15] VITALS: BP 112/57; PULSE 84; TEMP 98.2
--- NOTE | 2021-12-20 14:36 | NUR ---
MELISSA met with the patient's , Farhana, to follow up about discharge and review home health vs SB. The patient was walking in the halls with PT. Farhana states that she is unsure what they want to do at this time. They are open either and whatever the doctor recommends. Farhana plans to talk to the doctor tomorrow on what they recommend. MELISSA provided her with Medicare.gov's list of home health agencies and SNFs in the [facility].
[2021-12-20 16:31] VITALS: BP 125/59; PULSE 88; TEMP 98.3
--- NOTE | 2021-12-20 18:34 | NUR ---
Patient resting in bed Illeaconduit dry and intact. Nephrostomy bag in place. Patient denies needs at this time.
[2021-12-20 20:32] VITALS: BP 101/53; PULSE 87; TEMP 98.1
[2021-12-20 23:18] VITALS: BP 110/59; PULSE 84; TEMP 98.7
[2021-12-21 04:43] VITALS: BP 135/68; PULSE 75; TEMP 97.7
[2021-12-21 06:51] LABS: MEAN CELL VOLUME 91 fl (80.0-100.0); MEAN CORPUSCULAR HGB CONC 33 g/dl (33.0-37.0); PLATELET COUNT 207 K/mm3 (130-400); RED BLOOD COUNT 3.08 M/mm3 (4.20-5.60); REDCELL DISTRIBUTION WIDTH-CV 14.9 % (11.5-14.5)
[2021-12-21 06:56] LABS: HEMATOCRIT 27.9 % (42.0-52.0); HEMOGLOBIN 9.1 g/dl (13.5-18.0); MEAN CORPUSCULAR HEMOGLOBIN 30 pg (27-31)
[2021-12-21 07:12] LABS: CALCIUM 7.6 mg/dL (8.4-10.2); CREATININE, serum 0.97 mg/dL (0.72-1.25); POTASSIUM 3.5 mmol/L (3.5-4.5)
--- NOTE | 2021-12-21 07:20 | NUR ---
Reports received from the night shift manager nurse, Allison MURPHY
[2021-12-21 07:52] LABS: BAND 18 % (0-10); EOSINOPHIL 1 % (0-4); HYPOCHROMIA 1+; LYMPHOCYTE 12 % (20.0-51.0); METAMYELOCYTE 2 % (0-0); NEUTROPHILS 50 % (42.0-75.2); PLATELET ESTIMATE NORMAL (NORMAL)
[2021-12-21 07:54] VITALS: BP 115/55; PULSE 88; TEMP 97.3
--- NOTE | 2021-12-21 10:13 | NUR ---
Patient resting in bed with spouse at the bedside. Patient alert and oriented. VSS. Midline incision intact. Ileostomy bag intact not output noted. Nephrostomy draining yellow drainage in the bag. Patient denies pain at this time.
[2021-12-21 11:29] VITALS: BP 107/57; PULSE 84; TEMP 98.2
--- NOTE | 2021-12-21 11:49 | NUR ---
Reinforced dressing on the nephrostomy incision site. Patient tolerated it well .
--- NOTE | 2021-12-21 13:56 | NUR ---
Patient called that there's a leakage from the illeostomy bag. Bag changed and patient tolerated it well.
[2021-12-21 15:15] VITALS: BP 125/84; PULSE 88; TEMP 97.7
--- NOTE | 2021-12-21 15:28 | NUR ---
Wax Cutter met with patient and patient's , Farhana to review discharge plan. At this time, they are leaning towards Home Health and are reviewing Medicare.gov list of HH agencies. Patient feels his xray did not go well and may delay discharge.
--- NOTE | 2021-12-21 18:34 | NUR ---
Patient's illeostomy and nephrostomy bag intact, No drainage noted at this time. Patient denies pain.
[2021-12-21 20:48] VITALS: BP 118/57; PULSE 93; TEMP 98.8
[2021-12-21 23:52] VITALS: BP 126/55; PULSE 86; TEMP 97.6
[2021-12-22 04:38] VITALS: BP 113/60; PULSE 80; TEMP 98.1
[2021-12-22 07:28] VITALS: BP 122/57; PULSE 77; TEMP 97.6
--- NOTE | 2021-12-22 07:46 | NUR ---
Patient resting in bed. His at bedside. Patient denies pain. Left Nephrostomy tube to DD. Dressing intact. Abdomen soft, midline with edges well approximated. Illeoconduit with appliace intact, minimal output. Patient concerned about his diet, will contact buttermilk drier operator. He ordered breakfast, but concerned about weight loss. Will monitor.
--- NOTE | 2021-12-22 09:23 | NUR ---
Good Muñoz rounded on patient & orders for neph tube replacement ordered & discussed with radiology team, plans for this afternoon.
--- NOTE | 2021-12-22 10:54 | NUR ---
Patient showered. Minimal assist. New dressing to Neph tube site, drain spounge and tegaderm. Bandaid applied to prior ELDER drain site. New urostomy appliance applied, Skin prepped with stoma powder and barrier wipes. Irritation to skin. Wafer cut to fit. Patient instructed to avoid lunch until after neph tube site.
[2021-12-22 11:11] VITALS: BP 100/49; PULSE 89; TEMP 97.8
--- NOTE | 2021-12-22 13:34 | NUR ---
Patient to radiology for neph tube exchange.
[2021-12-22 15:45] VITALS: BP 117/61; PULSE 86; TEMP 98.3
--- NOTE | 2021-12-22 16:04 | NUR ---
Treasury Management Sales Consultant met with patient's to review Medicare.gov list of HH agencies. Patient is out of the room, however patient's advised they discussed the list with people they know and want to use [facility] out of [place]. MELISSA contacted [facility] in [place] and spoke with Doris about referral. MELISSA faxed clinical information.
--- NOTE | 2021-12-22 18:02 | NUR ---
Patient has done well post neph tube exchange, with urine output. Pain managed at this time. He has tolerated dinner. Illeo conduit to DD, minimal output. Appliance remains intact. at bedside. In positive spirits. Will report off to nightnurse
[2021-12-22 19:44] VITALS: BP 108/49; PULSE 89; TEMP 97.8
--- NOTE | 2021-12-22 21:57 | NUR ---
SHIFT REPORT FROM DAY SHIFT RN. PATIENT IN BED ON ROOM ENTRY. SBA TO BATHROOM. HS MEDS PER EMAR. MINIMAL DRAINAGE IN OSTOMY BAG. NEPH TUBE HAS DARK YELLOW HAZY OUTPUT.
[2021-12-23 00:24] VITALS: BP 114/57; PULSE 78; TEMP 98.1
[2021-12-23 04:05] VITALS: BP 113/59; PULSE 80; TEMP 97.9
[2021-12-23 06:48] LABS: MEAN CELL VOLUME 92 fl (80.0-100.0); MEAN CORPUSCULAR HGB CONC 32 g/dl (33.0-37.0); MEAN PLATELET VOLUME 9.9 fl (7.4-10.4); PLATELET COUNT 260 K/mm3 (130-400); RED BLOOD COUNT 2.86 M/mm3 (4.20-5.60); REDCELL DISTRIBUTION WIDTH-CV 14.9 % (11.5-14.5)
[2021-12-23 06:50] LABS: HEMATOCRIT 26.3 % (42.0-52.0); HEMOGLOBIN 8.5 g/dl (13.5-18.0); MEAN CORPUSCULAR HEMOGLOBIN 30 pg (27-31)
[2021-12-23 07:05] LABS: CALCIUM 7.7 mg/dL (8.4-10.2); POTASSIUM 3.3 mmol/L (3.5-4.5)
[2021-12-23 07:30] VITALS: BP 116/62; PULSE 76; TEMP 98
--- NOTE | 2021-12-23 07:35 | NUR ---
Dr Lew at bedside.
[2021-12-23 07:51] LABS: BAND 9 % (0-10); EOSINOPHIL 2 % (0-4); HYPOCHROMIA 1+; LYMPHOCYTE 14 % (20.0-51.0); METAMYELOCYTE 1 % (0-0); MYELOCYTE 2 % (0-0); NEUTROPHILS 60 % (42.0-75.2); PLATELET ESTIMATE NORMAL (NORMAL)
--- NOTE | 2021-12-23 08:30 | NUR ---
Assessment compete. A&Ox4. Denies pain/nausea/shortness of breath. VS stable. Spouse is at bedside as well as hospitalist team. Plan for discharge today once home health has been established. Urostomy with scant amount of cloudy output. Nerphrostomy with moderate amount of clear yellow output. Denies current questions/concerns. Verbalizes understanding. call light in reach. Will monitor.
--- NOTE | 2021-12-23 11:00 | NUR ---
Discharge instructions given both verbal and handwritten. Discussed f/u appt, ostomy care, home medications and home health. Denies questions/concerns. Extra ostomy supplies given. INT to right wrist DCd-cath intact. Escorted off floor via wheelchair by PCTNadira in stable condition escorted with spouse.
--- NOTE | 2021-12-23 11:21 | NUR ---
Online Marketing Director met with patient and patient's to review discharge plan. Patient to discharge home today and is looking forward to it. SW presented and reviewed IM form with patient who verbalized understanding and provided signature. SW placed form in chart and provided copy to patient. MELISSA contacted [facility] in [place] and faxed discharge orders. MELISSA confirmed they were received. Doris at [facility] advised they would contact patient to schedule visit for tomorrow. Discharge Plan: Home with [facility]
== END 2021-12-23 11:03 | disposition home health service (06) | DRG 699 ==
LOC: SURG 13:39
PROVIDERS: Physician Assistant; Student in an Organized Health Care Education/Training Program; ADMIT Urology
PROC: 0T25X0Z Change Drainage Device in Kidney, External Approach (ICD-10-PCS; principal; 2021-12-22)
DX: T83.092A Other mechanical complication of nephrostomy catheter, initial encounter (principal); J90 Pleural effusion, not elsewhere classified; T83.512A Infection and inflammatory reaction due to nephrostomy catheter, initial encounter; N12 Tubulo-interstitial nephritis, not specified as acute or chronic; I12.9 Hypertensive chronic kidney disease with stage 1 through stage 4 chronic kidney disease, or unspecified chronic kidney disease; E11.22 Type 2 diabetes mellitus with diabetic chronic kidney disease; N18.30 Chronic kidney disease, stage 3 unspecified; E03.9 Hypothyroidism, unspecified; E78.5 Hyperlipidemia, unspecified; D72.829 Elevated white blood cell count, unspecified; Y83.8 Other surgical procedures as the cause of abnormal reaction of the patient, or of later complication, without mention of misadventure at the time of the procedure; C67.9 Malignant neoplasm of bladder, unspecified; Z93.6 Other artificial openings of urinary tract status; Z79.890 Hormone replacement therapy; Z79.82 Long term (current) use of aspirin; Z79.4 Long term (current) use of insulin; Z87.891 Personal history of nicotine dependence; Z23 Encounter for immunization
CPT/HCPCS: OP; G0378; J0696; J1815; J7030